=== PATIENT | female | born 1990 | race Caucasian/White ===

== ENCOUNTER 2018-02-24 18:13 | Emergency (ER) | payer MEDICAID ==
[2018-02-24 20:31] LABS: URINE BLOOD (Dip) POC Trace-intact (NEGATIVE); URINE KETONES (Dip) POC Negative (NEGATIVE); URINE LEUKOCYTE EST (Dip) POC 3+ (NEGATIVE); URINE NITRITE (Dip) POC Positive (NEGATIVE); URINE TOTAL PROTEIN POC 1+ (NEGATIVE)
[2018-02-24 20:31] LABS: URINE PH (Dip) POC 8.5 (5.0-8.5)
[2018-02-24] MEDS: ACETAMINOPHEN 500 MG TAB PO (20:48)
[2018-02-24] MEDS: IBUPROFEN 800 MG TAB PO (20:48)
[2018-02-24] MEDS: CEFTRIAXONE 1 GM INJ IM (20:49)
== END 2018-02-24 21:04 | disposition home or self-care (01) ==
LOC: FTE 21:04
DX: N12 Tubulo-interstitial nephritis, not specified as acute or chronic (principal)
CPT/HCPCS: 81003; 81025; 87086; 96372; 99284-25